=== PATIENT | female | born 1940 | race Hispanic/Latino ===

== ENCOUNTER 2024-03-23 02:50 | Emergency (ER) | payer MEDICARE ==
[~2024-03-23] VITALS: Ht 160 cm; Wt 67.6 kg
[2024-03-23 03:44] LABS: BASOPHILS # (AUTO) 0.05 K/uL (0.00-0.20); BASOPHILS % (AUTO) 0.5 % (0.0-5.0); EOSINOPHILS # (AUTO) 0.07 K/uL (0.00-0.70); EOSINOPHILS % (AUTO) 0.7 % (0.0-8.0); IMMATURE GRANULOCYTE ABSOLUTE 0.04 K/uL (0-1); LYMPHOCYTES # (AUTO) 0.9 K/uL (1.0-4.8); LYMPHOCYTES % (AUTO) 9.6 % (21.0-51.0); MEAN CORPUSCULAR HEMOGLOBIN 26.6 pg (27.0-33.0); MEAN CORPUSCULAR HGB CONC 32.9 g/dL (32.0-36.0); MEAN CORPUSCULAR VOLUME 80.8 fL (79-99); MONOCYTES # (AUTO) 0.5 K/uL (0.1-1.0); MONOCYTES % (AUTO) 5.4 % (3.0-13.0); NEUTROPHILS % (AUTO) 83.4 % (40.0-77.0); PLATELET COUNT (AUTO) 173 K/uL (130-400); RED BLOOD CELL COUNT(AUTO) 4.33 MIL/uL (4.00-5.50); RED CELL DISTRIBUTION WIDTH 14.2 % (11.0-15.5); WHITE BLOOD COUNT (AUTO) 9.6 K/uL (4.8-10.8)
[2024-03-23 03:44] LABS: APPEARANCE,URINE TURBID (CLEAR); BILIRUBIN,URINE MODERATE mg/dL (NEGATIVE); COLOR,URINE RED (YELLOW); GLUCOSE, URINE (UA) NEGATIVE (NEGATIVE); KETONES,URINE NEGATIVE (NEGATIVE); LEUKOCYTE ESTERASE ,URINE SMALL Leu/uL (NEGATIVE); NITRATE,URINE POSITIVE (NEGATIVE); OCCULT BLOOD,URINE LARGE (NEGATIVE); PROTEIN,URINE >=300 mg/dL (NEGATIVE); UROBILINOGEN,URINE 0.2 mg/dL (0.2-1.0)
[2024-03-23 03:45] LABS: ADD UA MICROSCOPIC YES
[2024-03-23 03:54] LABS: CREATININE 0.9 mg/dL (0.5-1.0); POTASSIUM 3.9 mmol/L (3.5-5.1)
[2024-03-23 03:59] LABS: ALBUMIN 3.8 g/dL (3.5-5.0); BILIRUBIN,TOTAL 0.8 mg/dL (0.2-1.0); TOTAL PROTEIN, SERUM 7.6 g/dL (6.0-8.3)
[2024-03-23 04:08] LABS: BACTERIA,URINE Moderate /HPF (None Seen); RBC,URINE TNTC /HPF (0-1)
[2024-03-23 04:10] LABS: SQUAMOUS EPITHELIAL CELL,UR 0-2 /HPF (0-2)
[2024-03-23] MEDS: MORPHINE 2 MG SYG IVP ONE (05:33)
[2024-03-23] MEDS: CEFTRIAXONE 1G VIAL IVPB ONE (05:33)
[2024-03-23] MEDS: 0.9% NACL 500ML IV.SOLN 500 ML IV ONE (05:33)
[2024-03-23 06:41] VITALS: BP 148/70; PULSE 93; RESP 17; O2SAT 97
[2024-03-23] MEDS ORDERED: NITR100C4 PO (06:42)
== END 2024-03-23 06:56 | disposition home or self-care (01) ==
LOC: EDH 02:50
DX: N39.0 Urinary tract infection, site not specified (principal); E11.9 Type 2 diabetes mellitus without complications; I10 Essential (primary) hypertension; Z88.5 Allergy status to narcotic agent
CPT/HCPCS: 99284; 96374; 96375; 80053; 85025; 87077; 87088; 87186; 81001; 36415; J7040; J2270; J0696

== ENCOUNTER → 2025-02-15 | Outpatient (CLI) | payer MEDICARE ==
[~2025-02-15] MED LIST: ALEN70TA80 PO; ATOR10TA69 PO; CALC-866 PO; CEFD300C3 PO; GLIP2.5T23 PO; LISI40TA9 PO; SITA100T12 PO
--- NOTE | 2025-02-15 16:21 | HMCIMG ---
Exam Type: KNEE/PATELLA 1-2VWS LT Clinical Information: LEFT KNEE PAIN Comparison: None Findings: There are degenerative changes with narrowing of the lateral femorotibial joint space, with subchondral sclerosis. No acute fractures are seen. The soft tissues appear normal. Impression: Degenerative changes lateral compartment.
--- NOTE | 2025-02-15 16:31 | HMCIMG ---
Exam Type: HIP UNILAT 2-3VW LEFT Clinical Information: LEFT HIP PAIN Comparison: None Findings: There is osteopenia. The examination is otherwise unremarkable. No fractures or dislocations are seen. No radiopaque foreign bodies are noted. Soft tissues are preserved. IMPRESSION: Osteopenia. Otherwise normal exam.
== END | disposition home or self-care (01) ==
LOC: RAH 15:04
PROVIDERS: ATTEND Family Medicine
DX: M17.12 Unilateral primary osteoarthritis, left knee (principal); M85.88 Other specified disorders of bone density and structure, other site; M25.862 Other specified joint disorders, left knee; M25.562 Pain in left knee; M25.552 Pain in left hip
CPT/HCPCS: 73502; 73560